=== PATIENT | female | born 1980 | race American Indian/Alaskan Native ===

== ENCOUNTER 2019-08-06 15:35 | Emergency (ER) | payer MEDICARE ==
--- NOTE | 2019-08-06 16:30 | Event Note ---
ED Screening Note ED Screening Note: 39 yo female with hx of SCD. Leg,back pain. 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 This initial assessment/diagnostic orders/clinical plan/treatment(s) is/are subject to change based on patients health status, clinical progression and re- assessment by fellow clinical providers in the ED. Further treatment and workup at subsequent clinical providers discretion. Patient/guardian urged not to elope from the ED as their condition may be serious if not clinically assessed and managed. Initial orders include: labs
[2019-08-06] MEDS: HYDROmorphone 2 MG/1 ML INJ IV ONE ×2 (17:35→20:10)
[2019-08-06] MEDS: HYDROmorphone 2 MG/1 ML INJ IM ONE (17:50)
[2019-08-06 18:26] LABS: Hematocrit 22.7 % (30.3-42.9); Mean Corpuscular HGB Conc 35 % (30-34); Mean Corpuscular Volume 99 fl (79-97); Platelet Count 209 K/mm3 (140-440); Red Blood Count 2.29 M/mm3 (3.65-5.03); Red Cell Distribution Width 19.9 % (13.2-15.2)
[2019-08-06 18:38] LABS: BUN/Creatinine Ratio 15; Blood Urea Nitrogen 6 mg/dL (7-17); Calcium 9.4 mg/dL (8.4-10.2); Hemolysis Index 82
--- NOTE | 2019-08-06 18:59 | Emergency Department Report ---
ED General Adult HPI - General Chief complaint: Sickle Cell Crisis Stated complaint: SSC/LEG/LOWER BACK PAIN Time Seen by Provider: 08/06/19 17:01 Source: patient Mode of arrival: Ambulatory Limitations: No Limitations - History of Present Illness Initial comments: 39-year-old -[place] female with history of sickle cell presents with sickle cell pain bilaterally in legs and lower back x3 days. Patient states this pain is typical of her sickle cell crisis. Patient states she is currently following with Dr. Ware, hematology. She denies any swelling in her legs, chest pain, shortness of breath, back injuries, numbness/tingling/weakness in her limbs, or loss of bladder/bowel control. She rates her pain as a 10/10 in severity -: Sudden Severity scale (0 -10): 10 - Related Data Allergies Allergy/AdvReac Type Severity Reaction Status Date / Time morphine Allergy Hives Verified 08/06/19 15:38 ED Review of Systems ROS: Stated complaint: SSC/LEG/LOWER BACK PAIN Other details as noted in HPI Comment: All other systems reviewed and negative Musculoskeletal: back pain, myalgia. denies: joint swelling, arthralgia ED Past Medical Hx - Past Medical History Hx Sickle Cell Disease: Yes - Surgical History Hx Cholecystectomy: Yes Additional Surgical History: RIGHT HIP REPLACEMENT /SHUNT IN HEAD PORT REMOVAL - Social History Smoking Status: Unknown if ever smoked Substance Use Type: None ED Physical Exam - General Limitations: No Limitations General appearance: alert, in no apparent distress - Head Head exam: Present: atraumatic, normocephalic - Eye Eye exam: Present: normal appearance - ENT ENT exam: Present: mucous membranes moist - Neck Neck exam: Present: normal inspection - Respiratory Respiratory exam: Present: normal lung sounds bilaterally. Absent: respiratory distress - Cardiovascular Cardiovascular Exam: Present: regular rate, normal rhythm. Absent: systolic murmur, diastolic murmur, rubs, gallop - GI/Abdominal GI/Abdominal exam: Present: soft, normal bowel sounds. Absent: distended, tenderness, guarding, rebound, rigid - Extremities Exam Extremities exam: Present: full ROM, tenderness (Generalized bilaterally in lower legs; no swelling or erythema noted) - Back Exam Back exam: Present: normal inspection, paraspinal tenderness. Absent: vertebral tenderness - Neurological Exam Neurological exam: Present: alert, oriented X3, normal gait - Psychiatric Psychiatric exam: Present: normal affect, normal mood - Skin Skin exam: Present: warm, dry, intact, normal color. Absent: rash, cyanosis, diaphoretic, erythema, urticaria ED Course Vital Signs 08/06/19 08/06/19 08/06/19 16:33 18:20 20:40 Temperature 98.9 F Pulse Rate 107 H Respiratory 18 18 18 Rate Blood Pressure 102/61 Blood Pressure [Right] O2 Sat by Pulse 100 Oximetry 08/06/19 08/06/19 08/07/19 22:59 23:01 00:35 Temperature 98.8 F Pulse Rate 92 H 93 H Respiratory 18 17 18 Rate Blood Pressure Blood Pressure 110/61 100/55 [Right] O2 Sat by Pulse 97 96 Oximetry ED Medical Decision Making - Lab Data Result diagrams: 08/06/19 18:01 08/06/19 18:01 Lab Results 08/06/19 08/06/19 08/06/19 Range/Units 18:01 18:01 21:29 WBC 10.5 (4.5-11.0) K/mm3 RBC 2.29 L (3.65-5.03) M/mm3 Hgb 8.0 L (10.1-14.3) gm/dl Hct 22.7 L (30.3-42.9) % MCV 99 H (79-97) fl MCH 35 H (28-32) pg MCHC 35 H (30-34) % RDW 19.9 H (13.2-15.2) % Plt Count 209 (140-440) K/mm3 Add Manual Diff Complete Total Counted 100 Seg Neuts % (Manual) 77.0 H (40.0-70.0) % Band Neutrophils % 0 % Lymphocytes % (Manual) 16.0 (13.4-35.0) % Reactive Lymphs % (Man) 0 % Monocytes % (Manual) 7.0 (0.0-7.3) % Eosinophils % (Manual) 0 (0.0-4.3) % Basophils % (Manual) 0 (0.0-1.8) % Metamyelocytes % 0 % Myelocytes % 0 % Promyelocytes % 0 % Blast Cells % 0 % Nucleated RBC % Not Reportable Seg Neutrophils # Man 8.1 H (1.8-7.7) K/mm3 Band Neutrophils # 0.0 K/mm3 Lymphocytes # (Manual) 1.7 (1.2-5.4) K/mm3 Abs React Lymphs (Man) 0.0 K/mm3 Monocytes # (Manual) 0.7 (0.0-0.8) K/mm3 Eosinophils # (Manual) 0.0 (0.0-0.4) K/mm3 Basophils # (Manual) 0.0 (0.0-0.1) K/mm3 Metamyelocytes # 0.0 K/mm3 Myelocytes # 0.0 K/mm3 Promyelocytes # 0.0 K/mm3 Blast Cells # 0.0 K/mm3 WBC Morphology Not Reportable Hypersegmented Neuts Not Reportable Hyposegmented Neuts Not Reportable Hypogranular Neuts Not Reportable Smudge Cells Not Reportable Toxic Granulation Not Reportable Toxic Vacuolation Not Reportable Dohle Bodies Not Reportable Pelger-Huet Anomaly Not Reportable Taran Rods Not Reportable Platelet Estimate Consistent w auto Clumped Platelets Not Reportable Plt Clumps, EDTA Not Reportable Large Platelets Not Reportable Giant Platelets Not Reportable Platelet Satelliting Not Reportable Plt Morphology Comment Not Reportable RBC Morphology Not Reportable Dimorphic RBCs Not Reportable Polychromasia Not Reportable Hypochromasia Not Reportable Poikilocytosis Not Reportable Anisocytosis Few Microcytosis Not Reportable Macrocytosis Not Reportable Spherocytes Not Reportable Pappenheimer Bodies Not Reportable Sickle Cells 2+ Target Cells 1+ Tear Drop Cells Not Reportable Ovalocytes Not Reportable Helmet Cells Not Reportable Blank-[place]ston Bodies Not Reportable [place] Rings Not Reportable [place] Cells Not Reportable Bite Cells Not Reportable Crenated Cell Not Reportable Elliptocytes Few Acanthocytes (Spur) Not Reportable Rouleaux Not Reportable Hemoglobin C Crystals Not Reportable Schistocytes Not Reportable Malaria parasites Not Reportable Percent Retic 8.58 H (0.78-2.58) % [place] Bodies Not Reportable Hem Pathologist Commnt No Sodium 137 (137-145) mmol/L Potassium 4.3 (3.6-5.0) mmol/L Chloride 103.4 (98-107) mmol/L Carbon Dioxide 19 L (22-30) mmol/L Anion Gap 19 mmol/L BUN 6 L (7-17) mg/dL Creatinine 0.4 L (0.7-1.2) mg/dL Estimated GFR > 60 ml/min BUN/Creatinine Ratio 15 % Glucose 98 (65-100) mg/dL Calcium 9.4 (8.4-10.2) mg/dL Urine Color Yellow (Yellow) Urine Turbidity Clear (Clear) Urine pH 6.0 (5.0-7.0) Ur Specific [place] 1.010 (1.003-1.030) Urine Protein <15 mg/dl (Negative) mg/dL Urine Glucose (UA) Neg (Negative) mg/dL Urine Ketones Neg (Negative) mg/dL Urine Blood Sm (Negative) Urine Nitrite Neg (Negative) Ur Reducing Substances Not Reportable Urine Bilirubin Neg (Negative) Urine Ictotest Not Reportable Urine Urobilinogen 4.0 (<2.0) mg/dL Ur Leukocyte Esterase Neg (Negative) Urine WBC (Auto) 5.0 (0.0-6.0) /HPF Urine RBC (Auto) 2.0 (0.0-6.0) /HPF U Epithel Cells (Auto) 2.0 (0-13.0) /HPF Urine Bacteria (Auto) 1+ (Negative) /HPF Urine Mucus Few /HPF Urine HCG, Qual Negative (Negative) - Medical Decision Making 39-year-old -[place] female with history of sickle cell presents with sickle cell pain bilaterally in legs and lower back x3 days. Patient states this pain is typical of her sickle cell crisis. Hemoglobin = 8.1. Reticulocyte count =8.58. Pt given 2 L bolus and 3 rounds of dilaudid. SHe states she is noo longer having pain. Her vitals are normal and she is nontoxic appearing. PT is stable for d/c home and f/u with her customer solutions coordinator, Dr. Ware. Discussed strict return precautions in detail with pt who states understanding. Critical care attestation.: If time is entered above; I have spent that time in minutes in the direct care of this critically ill patient, excluding procedure time. ED Disposition Clinical Impression: Sickle cell pain crisis Disposition: DC-01 TO HOME OR SELFCARE Is pt being admited?: No Condition: Stable Instructions: Sickle Cell Crisis (ED) Referrals: LORRAINE WARE MD [Primary Care Provider] - 3-5 Days
[2019-08-06 19:02] LABS: Basophils % (Manual) 0 % (0.0-1.8); Eosinophils % (Manual) 0 % (0.0-4.3); Total Cells Counted 100
[2019-08-06 19:04] LABS: Anisocytosis Few; Platelet Estimate Consistent w Auto; Sickle Cells 2+; Target Cells 1+
[2019-08-06] MEDS: SODIUM CHLORIDE 0.9% 1000 ML 1,000 ML IV ONE ×2 (19:51→22:33)
[2019-08-06] MEDS: diphenhydrAMINE 50 MG/ML VIAL IV ONE ×2 (19:55→22:29)
[2019-08-06] MEDS ORDERED: HYDROmorphone 2 MG/1 ML INJ ONE (20:10)
[2019-08-06 21:37] LABS: HCG Qualitative,Urine Negative (Negative)
[2019-08-06 21:39] LABS: Bacteria,Urine 1+ /HPF (Negative); Bilirubin,Urine NEG (Negative); Blood,Urine SM (Negative); Color,Urine Yellow (Yellow); Mucus,Urine FEW /HPF; Protein,Urine <15 mg/dL mg/dL (Negative)
[2019-08-06] MEDS: HYDROmorphone 1 MG/1 ML INJ IV ONE (22:29)
[2019-08-07 01:46] VITALS: BP 100/55
== END 2019-08-07 00:35 | disposition home or self-care (01) ==
LOC: ED 15:35
DX: D57.00 Hb-SS disease with crisis, unspecified (principal); Z98.890 Other specified postprocedural states; Z88.4 Allergy status to anesthetic agent
CPT/HCPCS: 36415; 80048; 81001; 81025; 85007; 85025; 85045; 96372; 96374; 96375; 96376; 99283; J1170; J1200; J7030